=== PATIENT | male | born 1985 ===

== ENCOUNTER 2018-03-30 09:58 | Emergency (ER) | payer MEDICAID ==
[2018-03-30 10:14] VITALS: RESP 16
--- NOTE | 2018-03-30 10:22 | ED PDOC ---
Lower Extremity Pain/Injury Time Seen by Provider: 03/30/18 10:07 Chief Complaint (Nursing): Lower Extremity Problem/Injury Chief Complaint (Provider): Right foot pain History Per: Patient History/Exam Limitations: no limitations Onset/Duration Of Symptoms: Days (x1) Current Symptoms Are (Timing): Still Present Additional Complaint(s): Hugo Rodriguez is a 32 year old male, with no significant past medical history, who presents to the emergency department for evaluation of an inversion injury to right foot onset yesterday. Patient reports pain and swelling to right foot as well as pain on weight baring. He denies any other injuries or medical complaints. PMD: None provided. Past Medical History Reviewed: Historical Data, Nursing Documentation, Vital Signs Vital Signs: Last Vital Signs Temp 98.5 F 03/30/18 10:09 Pulse 65 03/30/18 10:09 Resp 16 03/30/18 10:09 BP 145/88 03/30/18 10:09 Pulse Ox 100 03/30/18 10:09 - Medical History PMH: No Chronic Diseases - Surgical History Surgical History: No Surg Hx - Family History Family History: States: Unknown Family Hx - Social History Alcohol: None Drugs: Denies - Home Medications Home Medications: Ambulatory Orders Medication Instructions Recorded Naproxen [Naprosyn] 500 mg PO Q12H #20 tab 03/30/18 - Allergies Allergies/Adverse Reactions: Allergies Allergy/AdvReac Type Severity Reaction Status Date / Time No Known Allergies Allergy Verified 03/30/18 10:09 Review of Systems ROS Statement: Except As Marked, All Systems Reviewed And Found Negative Musculoskeletal: Positive for: Foot Pain (right and swelling ) Physical Exam - Reviewed Nursing Documentation Reviewed: Yes Vital Signs Reviewed: Yes - Physical Exam Appears: Positive for: Non-toxic, No Acute Distress Head Exam: Positive for: ATRAUMATIC, NORMAL INSPECTION, NORMOCEPHALIC Skin: Positive for: Normal Color, Warm, Dry Eye Exam: Positive for: Normal appearance, EOMI, PERRL Neck: Positive for: Painless ROM Extremity: Positive for: Tenderness (right foot tenderness to lateral aspect with mild swelling. No malleolar tenderness), Swelling (mild right foot). Negative for: Deformity Neurologic/Psych: Positive for: Alert, Oriented - ECG O2 Sat by Pulse Oximetry: 100 (RA) Pulse Ox Interpretation: Normal Medical Decision Making Medical Decision Making: Time: 10:07 Initial Plan: --Ankle right 3 views routine [RAD] --Foot right 3 views routine [RAD] --Reevaluation ----- Scribe Attestation: Documented by Kalia Palencia, acting as a scribe for Sagar Batres MD. Provider Scribe Attestation: All medical record entries made by the Scribe were at my direction and personally dictated by me. I have reviewed the chart and agree that the record accurately reflects my personal performance of the history, physical exam, medical decision making, and the department course for this patient. I have also personally directed, reviewed, and agree with the discharge instructions and disposition. Disposition - Clinical Impression Clinical Impression: Foot sprain - Patient ED Disposition Is Patient to be Admitted: No Counseled Patient/Family Regarding: Studies Performed, Rx Given - Disposition Referrals: Podiatry Clinic [Outside] Disposition: Routine/Home Disposition Time: 11:17 Condition: FAIR Prescriptions: Naproxen [Naprosyn] 500 mg PO Q12H #20 tab Instructions: Foot Sprain (DC) Forms: [employer] (Macedonian)
--- NOTE | 2018-03-30 11:23 | RAD ---
Date of service: 03/30/2018 PROCEDURE: Right Foot Radiographs. HISTORY: trauma COMPARISON: None. FINDINGS: BONES: Normal. No fracture. JOINTS: Normal. SOFT TISSUES: Normal. OTHER FINDINGS: None. IMPRESSION: Normal right foot radiographs.
--- NOTE | 2018-03-30 11:26 | RAD ---
Date of service: 03/30/2018 PROCEDURE: Right Ankle Radiographs. HISTORY: trauma COMPARISON: None FINDINGS: BONES: No fracture. Focal 2 cm segment of altered bone mineralization -distal fibular diaphysis noted no interrupted periosteal reaction. Probable trace expansion suggested. No pathological fracture. Etiology indeterminate -fibrous dysplasia is 1 consideration. Chronicity unknown. JOINTS: Normal. No osteoarthritis. Ankle mortise maintained. Talar dome intact SOFT TISSUES: Normal. OTHER FINDINGS: None. IMPRESSION: No fracture. Focal 2 cm segment of altered bone mineralization -distal fibular diaphysis noted no interrupted periosteal reaction. Probable trace expansion suggested. No pathological fracture. Etiology indeterminate -fibrous dysplasia is 1 consideration. Chronicity unknown. Comments: Study marked for PA review.
[2018-03-30 11:59] VITALS: BP 136/78; PULSE 68; TEMP 98; O2SAT 99
== END 2018-03-30 11:59 | disposition home or self-care (01) ==
LOC: H.ER 09:58
DX: S93.601A Unspecified sprain of right foot, initial encounter (principal); X50.9XXA Other and unspecified overexertion or strenuous movements or postures, initial encounter; Y92.89 Other specified places as the place of occurrence of the external cause